=== PATIENT | male | born 1960 | race Caucasian/White ===

== ENCOUNTER 2017-02-01 21:59 | Emergency (ER) | payer OTHER ==
--- NOTE | 2017-02-05 19:20 | ER ---
ADMIT: 02/01/2017 RM/LOC: ER [facility] MR#: [id number] [address] [id number] JOSE MIGUEL ALTAMIRANO [address] [place] [address] Emergency Room Report SEX: M AGE: 56 : 1960 DATE: 02/01/2017 HISTORY OF PRESENT ILLNESS: The patient is a 56-year-old male, came to the ER with chief complaint of 1 day of left leg pain and allegedly swelling early in the afternoon. The patient denies any recent trauma. The patient denies any recent swelling or pain or similar symptoms. PHYSICAL EXAMINATION: GENERAL: In the ER, the patient was in no distress. HEAD and NECK: Normal. LUNGS: Clear bilaterally. HEART: Normal heart sounds. ABDOMEN: Soft. EXTREMITIES: I did not notice any swelling or color changes in the lower extremities and both calves have the same circumference. In palpation and pressing the posterior left calf, the patient had some tenderness. The patient had normal peripheral pulses and normal capillary filling. EMERGENCY ROOM COURSE: Doppler ultrasound of the left lower extremity was negative for DVT. The patient was discharged to home with return precautions, with diagnosis of left leg pain, . Advised to measure the circumference of the bilateral legs and if there are any changes more than 3 cm, please come back to the ER or follow up with the primary doctor as needed. The patient was discharged to home to be followed up by the primary doctor. Ruben Flores MD/ coral JOB #: [id number] CC: Ruben Flores MD, Attending Physician Job Domingo DO, Family Physician
== END 2017-02-02 00:08 | disposition home or self-care (01) ==
LOC: ER 21:59
DX: S86.912A Strain of unspecified muscle(s) and tendon(s) at lower leg level, left leg, initial encounter (principal); K21.9 Gastro-esophageal reflux disease without esophagitis; X58.XXXA Exposure to other specified factors, initial encounter; Y92.009 Unspecified place in unspecified non-institutional (private) residence as the place of occurrence of the external cause